=== PATIENT | male | born 1940 | race Caucasian/White ===

== ENCOUNTER 2022-02-14 09:47 | Emergency (ER) | payer MEDICARE, OTHER ==
[~2022-02-14] VITALS: Ht 185.4 cm; Wt 84.5 kg
[2022-02-14 10:07] VITALS: BP 142/75
[2022-02-14 11:26] LABS: D-DIMER < 0.19 MG/L FEU (0-0.50)
== END 2022-02-14 11:57 | disposition home or self-care (01) ==
LOC: ER 09:48
DX: M79.604 Pain in right leg (principal); M79.89 Other specified soft tissue disorders
CPT/HCPCS: 36415; 85379; 85610; 93971; 99284